=== PATIENT | male | born 1990 | race Caucasian/White ===

== ENCOUNTER 2019-09-20 23:08 | Emergency (ER) | payer SELFPAY ==
[2019-09-20 23:36] LABS: EOS # 0.2 (0.04-0.40); HEMATOCRIT 43.9 % (42.0-52.0); HEMOGLOBIN 14.9 g/dL (13.5-18.0); LYMPH# 3.2 (1.50-4.00); MEAN CELL VOLUME 87 fl (78-100); MEAN CORPUSCULAR HEMOGLOBIN 29 pg (27-31); MEAN CORPUSCULAR HGB CONC 34 g/dL (33-37); PLATELET COUNT 247 K/mm3 (130-400); RED BLOOD COUNT 5.06 M/mm3 (4.20-5.60); RED CELL DISTRIBUTION WIDTH 14.5 % (11.5-14.5); WHITE BLOOD COUNT 15.4 K/mm3 (4.8-10.8)
[2019-09-20 23:37] LABS: NEU # 10.9 (1.40-6.50)
[2019-09-21 00:09] LABS: CALCIUM 9.3 mg/dL (8.3-10.5); POTASSIUM 3.8 mmol/L (3.5-5.1)
[2019-09-21 01:33] LABS: URINE APPEARANCE CLOUDY; URINE BILIRUBIN NEGATIVE (NEGATIVE); URINE BLOOD 250 ery/uL (NEGATIVE); URINE COLOR YELLOW; URINE GLUCOSE NEGATIVE (NEGATIVE); URINE KETONE NEGATIVE (NEGATIVE); URINE LEUKOCYTE ESTERASE NEGATIVE (NEGATIVE); URINE NITRATE NEGATIVE (NEGATIVE); URINE PROTEIN(semi-quant) 2+ mg/dL (NEGATIVE); URINE UROBILINOGEN NORMAL (NORMAL)
[2019-09-21 01:34] LABS: URINE MUCUS PRESENT (NOT PRESENT); URINE WBC 0-1 /hpf (0-3)
[2019-09-21] MEDS ORDERED: PERCOCET 325 MG1 TA2 PO (02:59)
[2019-09-21] MEDS ORDERED: ZOFRAN ODT4 MG PO (02:59)
[2019-09-21] MEDS ORDERED: FLOMAX0.4 MG PO (02:59)
[2019-09-21] MEDS ORDERED: SEPTRA DS 8001 TAB PO (02:59)
[2019-09-21 03:21] VITALS: BP 136/91
== END 2019-09-21 03:21 | disposition home or self-care (01) ==
LOC: ED 23:08
PROVIDERS: Family Medicine
DX: N20.1 Calculus of ureter (principal)
CPT/HCPCS: J1885; J2405; J3010; J7030

== ENCOUNTER 2021-08-19 13:32 | Emergency (ER) | payer SELFPAY ==
[~2021-08-19 13:32] MED LIST: FLOMAX0.4 MG PO; PERCOCET 325 MG1 TA2 PO; SEPTRA DS 8001 TAB PO; ZOFRAN ODT4 MG PO
[2021-08-19 14:37] LABS: BASO # 0.03 K/mm3 (0.02-0.10); EOS # 0.08 K/mm3 (0.04-0.40); EOS % 0.9 % (0.0-4.0); HEMATOCRIT 44.1 % (42.0-52.0); HEMOGLOBIN 15.2 g/dL (13.5-18.0); LYMPH# 2.31 K/mm3 (1.50-4.00); MEAN CELL VOLUME 85 fl (78-100); MEAN CORPUSCULAR HEMOGLOBIN 29 pg (27-31); MEAN CORPUSCULAR HGB CONC 35 g/dL (33-37); MEAN PLATELET VOLUME 9.9 fl (7.4-10.4); MONO # 0.38 K/mm3 (0.20-0.80); PLATELET COUNT 248 K/mm3 (130-400); RED BLOOD COUNT 5.19 M/mm3 (4.20-5.60); RED CELL DISTRIBUTION WIDTH 12.9 % (11.5-14.5); WHITE BLOOD COUNT 9.2 K/mm3 (4.8-10.8)
[2021-08-19 14:52] LABS: ALBUMIN 4.2 g/dL (3.5-5.0); POTASSIUM 3.6 mmol/L (3.5-5.1)
[2021-08-19 14:53] LABS: CALCIUM 9.5 mg/dL (8.3-10.5)
[2021-08-19 14:55] LABS: TOTAL PROTEIN 7.1 g/dL (6.4-8.3)
[2021-08-19 14:56] LABS: TOTAL BILIRUBIN 0.5 mg/dL (0.2-1.2)
[2021-08-19 15:37] VITALS: BP 152/86
== END 2021-08-19 15:40 | disposition home or self-care (01) ==
LOC: ED 13:32
PROVIDERS: Physician Assistant
DX: U07.1 COVID-19 (principal)